=== PATIENT | male | born 1955 | race Caucasian/White ===

== ENCOUNTER 2021-11-23 16:39 | Emergency (ER) | payer MEDICARE ==
[~2021-11-23] VITALS: Ht 185.4 cm; Wt 83.9 kg
[2021-11-23] MEDS ORDERED: TOPROL XL25 MG (16:54)
[2021-11-23] MEDS ORDERED: Amlodipine Bes2.5 MG (16:54)
[2021-11-23] MEDS ORDERED: ROSU5 (16:55)
[2021-11-23] MEDS ORDERED: CEPH500 PO (18:24)
[2021-11-23] MEDS ORDERED: HYDR1TAB94 PO (18:24)
== END 2021-11-23 18:44 | disposition home or self-care (01) ==
LOC: ER 16:39
DX: S68.621A Partial traumatic transphalangeal amputation of left index finger, initial encounter (principal); X58.XXXA Exposure to other specified factors, initial encounter
CPT/HCPCS: 12031; 73140; 90471; 90714; 96374; 99283-25; A9270; J0690